=== PATIENT | female | born 1945 | race Asian ===

== ENCOUNTER 2021-12-14 22:25 | Emergency (ER) | payer MEDICARE, OTHER, SELFPAY ==
[2021-12-14 22:55] VITALS: BP 172/88; PULSE 62; RESP 16; TEMP 36.4; O2SAT 98; BMI 24.1
--- NOTE | 2021-12-14 23:20 | CRLHL7_ITS ---
For Patients: As a result of the Cures Act, medical imaging exams and procedure reports are released immediately into your electronic medical record. You may view this report before your referring provider. If you have questions, please contact your health care provider. Indication: Trauma, fall. Pain. Technique: Three views of the left knee. Comparison: None. Findings/Impression: No acute fracture or dislocation. Tricompartmental osteophytes are present. Fabella is noted. Trace knee joint effusion. Mild edema within the infrapatellar fat pad. Dictated by Suri Paris MD @ 12/15/2021 12:34:12 AM (Electronically Signed)
[2021-12-14] MEDS: ACETAMINOPHEN 500 MG TABLET 1000 MG PO (23:54)
--- NOTE | 2021-12-15 00:22 | ED_ITS ---
HPI - Extremity Injury (Lower) General Chief Complaint: Extremity Pain/Injury, Lower Stated Complaint: Fall, knee pain Time Seen by Provider: 12/14/21 23:09 History of Present Illness HPI Narrative: 76-year-old woman presenting to the emergency department with her daughter. She is visiting the area to be with her brother who is in hospice and near . She had left his bedside and tripped over a concrete/curb and fell forward landing on hands and knees. Did not strike her head. There was no loss of consciousness. Notes a history of osteopenia which has resolved with her Mediterranean diet. Still with osteoarthritis. Left knee is the knee with most discomfort. She thinks it is a little swollen. No neck or back pain. Is not complaining of wrist pain. No abrasion apparent Related Data Home Medications Medication Instructions Recorded Confirmed cyclosporine 0.05 % eye drops in a drp 12/14/21 dropperette (Restasis) escitalopram oxalate 5 mg tablet mg 12/14/21 fluticasone propionate 50 intranasal 12/14/21 mcg/actuation nasal spray,suspension hydrocortisone-acetic acid 1 %-2 % drp 12/14/21 ear drops raloxifene 60 mg tablet mg 12/14/21 Allergies Allergy/AdvReac Type Severity Reaction Status Date / Time Penicillins AdvReac Severe Verified 12/14/21 23:07 Exam Narrative: Exam Narrative: Pleasant. NAD. Very talkative. Appears to be moving all extremities without difficulty. Head is atraumatic. Breathing easily. Cardiovascular is regular rate and rhythm Flexes and extends at the hips without difficulty. Also flexes and extends her knees. I do not see evidence of trauma to her hands or wrists. No abrasions over her knees. There is maybe a subtle effusion fullness on the left knee versus the right. Const: Vital Signs, click to edit/add: Vital Signs - 24 hr 12/14/21 22:55 Temperature 97.6 F Pulse Rate [Right Pulse Oximeter] 62 Respiratory Rate 16 Blood Pressure [Le ft Upper Arm] 172/88 H Pulse Oximetry 98 Oxygen Delivery Me thod Room Air Documenting provider has reviewed patient's vital signs: yes Course Course Hospital Course: Given acetaminophen sent for imaging Vital Signs Vital signs: Initial Vital Signs Temperature 97.6 F 12/14/21 22:55 Temperature Source Temporal Artery Scan 12/14/21 22:55 Pulse Rate 62 12/14/21 22:55 Pulse Rhythm 12/14/21 22:55 Pulse Strength 3+ Normal 12/14/21 22:55 Respiratory Rate 16 12/14/21 22:55 Blood Pressure 172/88 H 12/14/21 22:55 Blood Pressure Mean 116 12/14/21 22:55 Blood Pressure Position Supine 12/14/21 22:55 Pulse Oximetry 98 12/14/21 22:55 Oxygen Delivery Method 12/14/21 22:55 Vital Signs Temperature 97.6 F 12/14/21 22:55 Pulse Rate 62 12/14/21 22:55 Respiratory Rate 16 12/14/21 22:55 Blood Pressure 172/88 H 12/14/21 22:55 Pulse Oximetry 98 12/14/21 22:55 Oxygen Delivery Method 12/14/21 22:55 Temperature 97.6 F 12/14/21 22:55 Pulse Rate 62 12/14/21 22:55 Respiratory Rate 16 12/14/21 22:55 Blood Pressure 172/88 H 12/14/21 22:55 Pulse Oximetry 98 12/14/21 22:55 Oxygen Delivery Method 12/14/21 22:55 MDM - Extremity Injury (Lower) MDM Narrative Medical decision making narrative: Does not seem to need interventions for pain though she is uncomfortable and would accept some acetaminophen. This was ordered. I discussed watchful waiting, icing but given her presence here they did like to proceed with imaging. Three-view left knee reviewed by me shows osteoarthritic changes. Narrowing actually of the lateral joint compartment relative to the medial. I do not see any acute bony abnormality. I shared images with [facility] over-read Findings/Impression: No acute fracture or dislocation. Tricompartmental osteophytes are present. Fabella is noted. Trace knee joint effusion. Mild edema within the infrapatellar fat pad. Discharge Plan Discharge Clinical Impression: Knee strain, Contusion of knee Patient Disposition: Home, Self-Care Condition: Stable Additional Instructions: Since you acutely injured your knee, yes, I do think that icing is more im portant than heat over the next 2-3 days. I would try to ice it 2 - 3 times daily over the next 2-3 days. Maybe with a little food ibuprofen would not be so intolerable. Alternative to that could be up to 500 mg naproxen 2 times daily. Or your usual acetaminophen. Follow-up in a week if your knee is not improving. I will call you if radiology notes something more in your imaging. I wish you all peace in the coming days. Prescriptions: No Action hydrocortisone-acetic acid 1-2 % drops Label Comments: INSTILL 2 DROPS INTO AFFECTED EAR(S) 4 TIMES A DAY raloxifene 60 mg tablet Label Comments: TAKE 1 TABLET BY MOUTH EVERY DAY fluticasone propionate 50 mcg/actuation spray,suspension INTRANASAL Label Comments: INSTILL 1 SPRAY INTO EACH NOSTRIL TWICE A DAY cyclosporine [Restasis] 0.05 % dropperette Label Comments: INSTILL 1 DROP INTO BOTH EYES TWICE A DAY escitalopram oxalate 5 mg tablet Label Comments: TAKE 1 TABLET BY MOUTH EVERY DAY AT BEDTIME *DO NOT STOP MEDICATION SUDDENLY Follow Up/Referrals: Provider,Not a Local [Primary Care Provider] - Stand Alone Forms: [facility] Info Instructions
--- OUTSIDE RECORDS SUMMARY | 2021-12-15 00:42 | XMS_ITS ---
:1945 Author Care Team Providers Name Role Phone Yanira Harper Primary Care Provider Unavailable Allergies Code Code System Name Reaction Severity Status Onset Penicillins ? ? Active ? Notes: 07/31/16JG Medications Name Status Start Date Stop Date ? ? B12 Active ? Not available One Tablet By Mouth Daily calcium Active ? Not available one tablet Daily cetirizine 10 mg tablet Completed ? 08/01/19 17 Take 1 tablet every day by oral route as directed. D3 DOTS Active ? Not available One Tablet By Mouth Daily Dexilant 60 mg capsule, delayed release Active ? Not available Take 1 capsule every day by oral route for 56 days. Diflucan 150 mg tablet Completed ? 7 Take 1 tablet by oral route as directed. Flonase Allergy Relief 50 mcg/actuation nasal spray,suspension A ctive ? Not available [place] 2 sprays every day by intranasal route as directed for 30 days. krill oil Active ? Not available One Tablet By Mouth Daily levocetirizine 5 mg tablet Active ? Not a vailable Take 1 tablet every day by oral route as directed. [id number] 3.5 mg-10,000 unit/mL-1 % ear drops ,susp Active ? Not available Instill 4 drops 3 times a day by otic route as directed for 7 d ays. Pataday 0.2 % eye drops Active ? Not avai lable INSTILL 1 DROP INTO AFFECTED EYE(S) BY OPHTHALMIC ROUTE ONCE DA SAMEER Pyridium 200 mg tablet Completed ? 7 Take 1 tablet 3 times a day by oral route as directed for 2 day s. ranitidine 150 mg capsule Active ? Not av ailable Take 1 capsule every day by oral route. Replens vaginal gel Active ? Not availabl e Insert 1 g every day by vaginal route as directed for 30 days. Restasis Completed ? 03/14/2016 Twice Daily Restasis 0.05 % eye drops in a dropperette Active ? Not available INSTILL 1 DROP INTO AFFECTED EYE(S) BY OPHTHALMIC ROUTE EVERY 1 2 HOURS Voltaren 1 % topical gel Active ? Not jeannette ilable APPLY 2 GRAM TO THE AFFECTED AREA(S) BY TOPICAL ROUTE 4 TIMES P ER DAY zinc Active ? Not available One Tablet By Mouth Daily Notes: verbal confirmation-07/31/16JG Problems Name Status Onset Date Source ? Knee Joint Painful on Movement Unknown 11/06/2015 ? Hyperlipidemia Active 01/03/2016 ? Osteoarthritis of Knee Active 01/03/2016 ? Gastritis Unknown 02/25/2016 ? Diverticulitis Unknown 03/14/2016 ? Vaginitis Unknown 03/14/2016 ? Vaginal Dryness Unknown 03/14/2016 ? Dysuria Unknown 03/14/2016 ? Allergic Conjunctivitis Unknown 04/01/2016 ? Depressive Disorder Active 07/18/2016 ? Osteopenia Active 07/18/2016 ? Procedures Date Name Performed by ? 03/23/2015 Colonoscopy Information not avai lable Notes: benign polyps 03/23/2013 Eye - Cataract Surgery Information not a vailable ? Breast - Lumpectomy Information not avai lable Notes: left. fibroadenoma ? Tonsillectomy Information not avai lable ? Hysterectomy - JAMES/BSO Information not a vailable Notes: non-cancerous 09/26/2015 MAMMO, Diagnostic, Digital, Bilateral [facility] [address] [place] [address] (Work Place) 09/26/2015 US, Breast [facility] [address] [place] [address] (Work Place) 11/05/2015 XR, Knee, 1 or 2 View [facility] [address] [place] [address] (Work Place) 07/18/2016 MAMMO, Screening, Digital, Bilateral [facility] [address] [place] [address] (Work Place) 07/18/2016 XR, Foot, 2 View [facility] [address] [place] [address] (Work Place) 07/21/2016 US, Breast [facility] [address] [place] [address] (Work Place) 07/21/2016 MAMMO, Diagnostic, Digital, Bilateral [facility] [address] [place] [address] (Work Place) 02/17/2017 US, Breast [facility] [address] [place] [address] (Work Place) Results Lab Results Date Name Specimen Result Interpretation Description Value Range Status Address ? 07/21/2016 CMP, Serum ? Glucose, 98 mg/dL 65-99 Jaye l [facility]: or Plasma Serum mg/dL [address], [place] ? ? ? Bun 9 mg/dL 8-27 Final [facility]: mg/dL [address], [place] ? ? ? Creatinine, 0.58 0.57-1.00 Final [facility]: Serum mg/dL mg/dL [address], [place] ? ? ? eGFR If 92 >59 Final [facility]: Nonafricn AM mL/min/1. mL/min/1. [address], [place] ? ? ? eGFR If 106 >59 Final [facility]: Africn AM mL/min/1. mL/min/1. [address], [place] ? ? ? BUN/creatini 16 - Final Lab татьяна: ne Ratio [address], [place] ? ? ? Sodium, 143 134-144 Final [facility] : Serum mmol/L mmol/L [address], [place] ? ? Above Potassium, 5.3 3.5-5.2 Final [facility]: High Serum mmol/L mmol/L [address], [place] ? ? ? Chloride, 102 96-106 Final [facility]: Serum mmol/L mmol/L [address], [place] ? ? ? Carbon 25 mmol/L 18-29 Final [facility]: Dioxide, mmol/L [address], [place] ? ? ? Calcium, 9.2 mg/dL 8.7-10.3 Final [facility]: Serum mg/dL [address], [place] ? ? ? Protein, 6.5 g/dL 6.0-8.5 Final [facility]: Total, Serum g/dL [address], [place] ? ? ? Albumin, 4.2 g/dL 3.5-4.8 Final [facility]: Serum g/dL [address], [place] ? ? ? Globulin, 2.3 g/dL 1.5-4.5 Final Lab татьяна: Total g/dL [address], [place] ? ? ? A/g Ratio 1.8 1.2-2.2 Final [facility]: [address], [place] ? ? ? Bilirubin, 0.4 mg/dL 0.0-1.2 Final [facility]: Total mg/dL [address], [place] ? ? ? Alkaline 74 IU/L 39-117 Final [facility]: Phosphatase, IU/L [address], [place] ? ? ? Ast (Sgot) 20 IU/L 0-40 IU/L Final [facility]: [address], [place] ? ? ? Alt (Sgpt) 15 IU/L 0-32 IU/L Final [facility]: [address], [place] 07/21/2016 CBC W/ Auto Below Wbc 3.3 3.4-10.8 Final [facility]: Diff Low x10e3/uL x10e3/uL [address], [place] ? ? ? Rbc 4.94 3.77-5.28 Final [facility] : x10e6/uL x10e6/uL [address], [place] ? ? ? Hemoglobin 14.4 g/dL 11.1-15.9 Final [facility]: g/dL [address], [place] ? ? ? Hematocrit 44.9 % 34.0-46.6 Final [facility]: % [address], [place] ? ? ? Mcv 91 fL 79-97 fL Final [facility]: [address], [place] ? ? ? Mch 29.1 pg 26.6-33.0 Final [facility]: pg [address], [place] ? ? ? Mchc 32.1 g/dL 31.5-35.7 Final [facility]: g/dL [address], [place] ? ? ? Rdw 14.0 % 12.3-15.4 Final [facility] : % [address], [place] ? ? ? Platelets 155 150-379 Final [facility]: x10e3/uL x10e3/uL [address], [place] ? ? ? Neutrophils 46 % ? Final [facility]: [address], [place] ? ? ? Lymphs 44 % ? Final [facility]: [address], [place] ? ? ? Monocytes 8 % ? Final [facility]: [address], [place] ? ? ? Eos 1 % ? Final [facility]: [address], [place] ? ? ? Basos 1 % ? Final [facility]: [address], [place] ? ? ? Immature sales assistant entertainment and media ? Cancelled [facility]: Cells [address], [place] ? ? ? Neutrophils 1.6 1.4-7.0 Final Lab татьяна: (Absolute) x10e3/uL x10e3/uL [address], [place] ? ? ? Lymphs 1.4 0.7-3.1 Final [facility]: (Absolute) x10e3/uL x10e3/uL [address], [place] ? ? ? Monocytes(ab 0.3 0.1-0.9 Final [facility]: solute) x10e3/uL x10e3/uL [address], [place] ? ? ? Eos 0.0 0.0-0.4 Final [facility]: (Absolute) x10e3/uL x10e3/uL [address], [place] ? ? ? Baso 0.0 0.0-0.2 Final [facility]: (Absolute) x10e3/uL x10e3/uL [address], [place] ? ? ? Immature 0 % ? Final [facility] : Granulocytes [address], [place] ? ? ? Immature 0.0 0.0-0.1 Final [facility]: Grans (Abs) x10e3/uL x10e3/uL [address], [place] ? ? ? Nrbc sales assistant entertainment and media ? Cancelled [facility] : [address], [place] ? ? ? Hematology sales assistant entertainment [employer] media ? Cancelled [facility]: Comments: [address], [place] 07/21/2016 Lipid Above Cholesterol, 208 mg/dL 100-199 Fi nal [facility]: Panel, High Total mg/dL [address], [place] ? ? ? Triglyceride 88 mg/dL 0-149 Final [facility]: s mg/dL [address], [place] ? ? ? HDL 78 mg/dL >39 mg/dL Final [facility]: Cholesterol [address], [place] ? ? ? VLDL 18 mg/dL 5-40 Final [facility]: Cholesterol mg/dL [address], [place] ? ? Above LDL 112 mg/dL 0-99 Final [facility] : High Cholesterol mg/dL [address], [place] ? ? ? Comment: sales assistant entertainment [employer] ? Cancelled [facility]: [address], [place] 07/21/2016 TSH, Serum ? TSH-icma 1.5 uu/mL ? Fin al [employer] or Plasma [employer] Coagulatio n : [address] [facility] 07/18/2016 Culture, URIN ? Urine final ? Final [facility]: Urine E Culture, report [address], [place] ? ? URIN ? Result 1 comment ? Final [facility]: E [address], [place] 03/05/2016 Culture, URIN ? Urine final ? Final [facility]: Urine E Culture, report [address], [place] ? ? URIN ? Result 1 no growth ? Final [facility]: E [address], [place] 12/25/2015 Cbc ? Wbc 3.8 3.4-10.8 Final [facility]: x10e3/uL x10e3/uL [address], [place] ? ? ? Rbc 4.83 3.77-5.28 Final [facility] : x10e6/uL x10e6/uL [address], [place] ? ? ? Hemoglobin 14.5 g/dL 11.1-15.9 Final [facility]: g/dL [address], [place] ? ? ? Hematocrit 42.8 % 34.0-46.6 Final [facility]: % [address], [place] ? ? ? Mcv 89 fL 79-97 fL Final [facility]: [address], [place] ? ? ? Mch 30.0 pg 26.6-33.0 Final [facility]: pg [address], [place] ? ? ? Mchc 33.9 g/dL 31.5-35.7 Final [facility]: g/dL [address], [place] ? ? ? Rdw 14.6 % 12.3-15.4 Final [facility] : % [address], [place] ? ? ? Platelets 159 150-379 Final [facility]: x10e3/uL x10e3/uL [address], [place] ? ? ? Neutrophils 46 % ? Final [facility]: [address], [place] ? ? ? Lymphs 46 % ? Final [facility]: [address], [place] ? ? ? Monocytes 6 % ? Final [facility]: [address], [place] ? ? ? Eos 1 % ? Final [facility]: [address], [place] ? ? ? Basos 1 % ? Final [facility]: [address], [place] ? ? ? Immature sales assistant entertainment and media ? Cancelled [facility]: Cells [address], [place] ? ? ? Neutrophils 1.7 1.4-7.0 Final Lab татьяна: (Absolute) x10e3/uL x10e3/uL [address], [place] ? ? ? Lymphs 1.8 0.7-3.1 Final [facility]: (Absolute) x10e3/uL x10e3/uL [address], [place] ? ? ? Monocytes(ab 0.2 0.1-0.9 Final [facility]: solute) x10e3/uL x10e3/uL [address], [place] ? ? ? Eos 0.1 0.0-0.4 Final [facility]: (Absolute) x10e3/uL [facility]3/uL [address] [facility] ? ? ? Baso 0.0 0.0-0.2 Final [facility]: (Absolute) x10e3/uL x10e3/uL [address], [place] ? ? ? Immature 0 % ? [facility] ? ? ? Immature 0.0 0.0-0.1 Final [facility]: Grans (Abs) x10e3/uL x10e3/uL [address] [facility] ? ? ? Nrbc sales assistant entertainment and media ? [facility] [address] [facility] [facility] ? ? ? Hematology sales assistant entertainment and media ? Cancelled [facility]: Comments: [address] [facility] 12/25/2015 CMP, Serum ? Glucose, 92 mg/dL 65-99 Jaye l [facility]: or Plasma Serum mg/dL [address] [facility] [facility] ? ? ? Bun 10 mg/dL 8-27 Final [facility]: mg/dL [address] [facility] [facility] ? ? ? Creatinine, 0.66 0.57-1.00 Final [facility]: Serum mg/dL mg/dL [address] [facility] [facility] ? ? ? eGFR If 89 >59 Final [facility]: Nonafricn AM mL/min/1. mL/min/1. [address] [facility] ? ? ? eGFR If 102 >59 Final [facility]: Africn AM mL/min/1. mL/min/1. 5 [address] [facility] ? ? ? BUN/creatini 15 - Final Lab татьяна: ne Ratio [address] [facility] ? ? ? Sodium, 141 134-144 Final [facility] : Serum mmol/L mmol/L [address] [facility] [facility] ? ? ? Potassium, 4.3 3.5-5.2 Final [facility]: Serum mmol/L mmol/L [address] [facility] [facility] ? ? ? Chloride, 101 97-108 Final [facility]: Serum mmol/L mmol/L [address], [place] ? ? ? Carbon 26 mmol/L 18-29 Final [facility]: Dioxide, mmol/L [address], [place] ? ? ? Calcium, 9.4 mg/dL 8.7-10.3 Final [facility]: Serum mg/dL [address], [place] ? ? ? Protein, 6.3 g/dL 6.0-8.5 Final [facility]: Total, Serum g/dL [address], [place] ? ? ? Albumin, 4.3 g/dL 3.5-4.8 Final [facility]: Serum g/dL [address], [place] ? ? ? Globulin, 2.0 g/dL 1.5-4.5 Final Lab татьяна: Total g/dL [address], [place] ? ? ? A/g Ratio 2.2 1.1-2.5 Final [facility]: [address], [place] ? ? ? Bilirubin, 0.5 mg/dL 0.0-1.2 Final [facility]: Total mg/dL [address], [place] ? ? ? Alkaline 69 IU/L 39-117 Final [facility]: Phosphatase, IU/L [address], [place] ? ? ? Ast (Sgot) 15 IU/L 0-40 IU/L Final [facility]: [address], [place] 12/25/2015 Urinalysis ? Specific 1.013 1.005-1.0 Fin al [facility]: Complete, [place] [address], Culture [place] ? ? ? Ph 7.5 5.0-7.5 Final [facility]: [address], [place] ? ? ? Urine-color yellow yellow Final [facility]: [address], [place] ? ? ? Appearance clear clear Final [facility]: [address], [place] ? ? ABNORM WBC Esterase trace negative Final [facility]: AL [address], [place] ? ? ? Protein negative negative/ Final Lab татьяна: trace [address], [place] ? ? ? Glucose negative negative Final [facility]: [address], [place] ? ? ? Ketones negative negative Final [facility]: [address], [place] ? ? ABNORM Occult Blood trace negative Final [facility]: [place] [address], [place] ? ? ? Bilirubin negative negative Final [facility]: [address], [place] ? ? ? Urobilinogen 0.2 mg/dL 0.2-1.0 Final [facility]: ,semi-qn mg/dL [address], [place] ? ? ? Nitrite, negative negative Final Lab татьяна: Urine [address], [place] ? ? ? Microscopic see ? Final [facility]: Examination below: [address], [place] ? ? ? Wbc 0-5 /hpf 0 - 5 Final [facility]: /hpf [address], [place] ? ? ? Rbc 0-2 /hpf 0 - 2 Final [facility]: /hpf [address], [place] ? ? ? Epithelial 0-10 /hpf 0 - 10 Final [facility]: Cells (Non /hpf [address], [place] ? ? ? Epithelial sales assistant entertainment [employer] ? Cancelled [facility]: Cells (Renal) [address], [place] ? ? ? Casts sales assistant entertainment and media ? Cancelled [facility] : [address], [place] ? ? ? Cast Type sales assistant entertainment and media ? Cancelled Lab татьяна: [address], [place] ? ? ? Crystals sales assistant entertainment and media ? Cancelled [facility]: [address], [place] ? ? ? Crystal Type sales assistant entertainment and media ? Cancelled [facility]: [address], [place] ? ? ? Mucus present not Final [facility]: Threads estab. [address], [place] ? ? ? Bacteria none seen none Final [facility]: seen/few [address], [place] ? ? ? Yeast sales assistant entertainment and media ? Cancelled [facility] : [address], [place] ? ? ? Trichomonas sales assistant entertainment and media ? Cancelled [facility]: [address], [place] ? ? ? Comment sales assistant entertainment and media ? Cancelled [facility]: [address], [place] ? ? ? Urinalysis comment ? Final [facility]: Reflex [address], [place] ? ? ? Urine final ? Final [facility]: Culture, report [address], [place] ? ? ? Result 1 no growth ? Final [facility]: [address], [place] 12/25/2015 Lipid Above Cholesterol, 227 mg/dL 100-199 Fi nal [facility]: Panel, High Total mg/dL [address], [place] ? ? ? Triglyceride 76 mg/dL 0-149 Final [facility]: s mg/dL [address], [place] ? ? ? HDL 82 mg/dL >39 mg/dL Final [facility]: Cholesterol [address], [place] ? ? ? VLDL 15 mg/dL 5-40 Final [facility]: Cholesterol mg/dL [address], [place] ? ? Above LDL 130 mg/dL 0-99 Final [facility] : High Cholesterol mg/dL [address], [place] ? ? ? Comment: sales assistant entertainment and media ? Cancelled [facility]: [address], [place] ? ? ? T. chol/HDL 2.8 ratio 0.0-4.4 Final [facility]: Ratio units ratio [address], [place] 12/25/2015 TSH, 2Nd ? Tsh 2.090 0.450-4.5 Final [facility]: Generation, uIU/mL 00 uIU/mL [address], Serum [place] [address], or Plasma [place] 12/25/2015 Vitamin D, ? Vitamin D, 46.9 30.0-100. F inal [facility]: 25-Hydroxy, 25-Hydroxy NG/mL 0 NG/mL [address], Serum [place] 12/25/2015 Vitamin Above Vitamin B12 3093 064-116 Final [facility]: B12, Serum High pg/mL pg/mL [address], [place] ? Urinalysis, ? Urocheck [id number] ? ? In-Office Dipstick 120, Lot # Orde r: Internal Use Only D O Not Attach Compendium DO Not Attach Compendium , Do Not Delete/gee g e ? ? ? Expiration 12/2017 ? ? In-O ffice Date: Order: Internal Use Only D O Not Attach Compendium DO Not Attach Compendium , Do Not Delete/gee g e ? ? ? Glucose Negative ? ? In-Off ice Order: Internal Use Only D O Not Attach Compendium DO Not Attach Compendium , Do Not Delete/gee g e ? ? ? Bilirubin negative ? ? In-O ffice Order: Internal Use Only D O Not Attach Compendium DO Not Attach Compendium , Do Not Delete/gee g e ? ? ? Ketone Negative ? ? In-Offi ce Order: Internal Use Only D O Not Attach Compendium DO Not Attach Compendium , Do Not Delete/gee g e ? ? ? Specific 1.020 ? ? In-Offi ce [place] Order: Internal Use Only D O Not Attach Compendium DO Not Attach Compendium , Do Not Delete/gee g e ? ? ? Blood Negative ? ? In-Offic e Order: Internal Use Only D O Not Attach Compendium DO Not Attach Compendium , Do Not Delete/gee g e ? ? ? Ph 7.0 ? ? In-Office Order: Internal Use Only D O Not Attach Compendium DO Not Attach Compendium , Do Not Delete/gee g e ? ? ? Protein Negative ? ? In-Off ice Order: Internal Use Only D O Not Attach Compendium DO Not Attach Compendium , Do Not Delete/gee g e ? ? ? Urobilinogen 0.2 ? ? In- Office Order: Internal Use Only D O Not Attach Compendium DO Not Attach Compendium , Do Not Delete/gee g e ? ? ? Nitrate negative ? ? In-Off ice Order: Internal Use Only D O Not Attach Compendium DO Not Attach Compendium , Do Not Delete/gee g e ? ? ? Leukocytes Negative ? ? In- Office Order: Internal Use Only D O Not Attach Compendium DO Not Attach Compendium , Do Not Delete/gee g e ? Urinalysis, ? Urocheck [id number] ? ? In-Office Dipstick 120, Lot # Orde r: Internal Use Only D O Not Attach Compendium DO Not Attach Compendium , Do Not Delete/gee g e ? ? ? Expiration 07/2017 ? ? In-O ffice Date: Order: Internal Use Only D O Not Attach Compendium DO Not Attach Compendium , Do Not Delete/gee g e ? ? ? Glucose Negative ? ? In-Off ice Order: Internal Use Only D O Not Attach Compendium DO Not Attach Compendium , Do Not Delete/gee g e ? ? ? Bilirubin neg ? ? In-Off ice Order: Internal Use Only D O Not Attach Compendium DO Not Attach Compendium , Do Not Delete/gee g e ? ? ? Ketone Negative ? ? In-Offi ce Order: Internal Use Only D O Not Attach Compendium DO Not Attach Compendium , Do Not Delete/gee g e Past Encounters None recorded. Social History Tobacco Smoking Status Never Smoker Vaccine List None recorded. Plan of Care Reminders Provider Appointments None recorded. ? ? Lab None recorded. ? ? Referral None recorded. ? ? Procedures None recorded. ? ? Surgeries None recorded. ? ? Imaging None recorded. ? ? Vitals 07/31/2016 10:00AM Medicare Advantage Appt Height Weight BMI Blood Pressure 5 ft 1 in 126.5 lbs 23.9 kg/m2 134/77 mm[Hg] 07/18/2016 09:20AM Medicare Advantage Appt Height Weight BMI Blood Pressure 5 ft 1 in 127.5 lbs 24.1 kg/m2 142/80 mm[Hg] 04/14/2016 11:00AM Clinic Nurse Service Height Weight BMI Blood Pressure 5 ft 1 in 126.5 lbs 23.9 kg/m2 121/80 mm[Hg] 04/01/2016 01:00PM Clinic Nurse Service Height Weight BMI Blood Pressure 5 ft 1 in 127 lbs 24 kg/m2 126/78 mm[Hg] 03/14/2016 10:40AM Same Day Sick FFS Height Weight BMI Blood Pressure 5 ft 1 in 126.5 lbs 23.9 kg/m2 137/75 mm[Hg] 03/05/2016 02:15PM Clinic Nurse Service Height Weight BMI Blood Pressure 5 ft 1 in 126 lbs 23.8 kg/m2 155/84 mm[Hg] 01/03/2016 03:20PM Medicare Advantage Appt Height Weight BMI Blood Pressure 5 ft 1 in 128 lbs 24.2 kg/m2 114/80 mm[Hg] 11/05/2015 03:40PM Sick MAPD Height Weight BMI Blood Pressure 5 ft 1 in 128 lbs 24.2 kg/m2 122/88 mm[Hg] 09/26/2015 04:00PM Medicare Advantage Appt Height Weight BMI Blood Pressure 5 ft 1 in 128 lbs 24.2 kg/m2 122/82 mm[Hg] 09/11/2015 10:00AM New Pt Med Advantage Height Weight BMI Blood Pressure 5 ft 1 in 125 lbs 23.6 kg/m2 110/90 mm[Hg]
--- OUTSIDE RECORDS SUMMARY | 2021-12-15 00:43 | XMS_ITS ---
[...] nasal spray,suspension A ctive ? Not available [place] 2 sprays every day by intranasal route as directed for 30 days. krill oil Active ? Not available One Tablet By Mouth Daily levocetirizine 5 mg tablet Active ? Not a vailable Take 1 tablet every day by oral route as directed. zqjlvhof-ahwhljeyq-swjrjriny 3.5 mg-10,000 unit/mL-1 % ear drops ,susp [...] Bilateral [facility] [address] [place] [address] (Work Place) 09/26/2015 US, Breast [facility] [address] [place] [address] (Work Place) 11/05/2015 XR, Knee, 1 or 2 View [facility] [address] [place] [address] (Work [address]) 07/18/2016 MAMMO, Screening, Digital, Bilateral [facility] [address] [place] [address] (Work Place) 07/18/2016 XR, Foot, 2 View [facility] [address] [place] [address] (Work Place) 07/21/2016 US, Breast [facility] [address] [place] [address] (Work Place) 07/21/2016 MAMMO, Diagnostic, Digital, Bilateral [facility] [address] [place] [address] (Work Place) 02/17/2017 US, Breast [facility] [address] [place] [address] (Work [address]) Results Lab Results Date Name Specimen Result Interpretation Description Value Range Status Address ? 07/21/2016 CMP, Serum ? Glucose, 98 mg/dL 65-99 Jaye l [facility]: or Plasma Serum mg/dL [address], [place] ? ? ? Bun 9 mg/dL 8-27 Final [facility]: mg/dL [address], [place] ? ? ? Creatinine, 0.58 0.57-1.00 Final [facility]: Serum mg/dL mg/dL [address], [place] ? ? ? eGFR If 92 >59 Final [facility]: Nonafricn AM mL/min/1. mL/min/1. [address], [place] ? ? ? eGFR If 106 >59 Final [facility]: Africn AM mL/min/1. mL/min/1. [address], [place] ? ? ? BUN/creatini 16 - Final Lab татьяна: ne Ratio [address], [place] ? ? ? Sodium, 143 134-144 Final [facility] : Serum mmol/L mmol/L [address], [place] ? ? Above Potassium, 5.3 3.5-5.2 Final [facility]: High Serum mmol/L mmol/L [address], [place] ? ? ? Chloride, 102 96-106 Final [facility]: Serum mmol/L mmol/L [address], [place] ? ? ? Carbon 25 mmol/L 18-29 Final [facility] p: Dioxide, mmol/L [address], [place] ? ? ? Calcium, 9.2 mg/dL 8.7-10.3 Final [facility]: Serum mg/dL [address], [place] ? ? ? Protein, 6.5 g/dL 6.0-8.5 Final [facility]: Total, Serum g/dL [address], [place] ? ? ? Albumin, 4.2 g/dL 3.5-4.8 Final [facility]: Serum g/dL [address], [place] ? ? ? Globulin, 2.3 g/dL 1.5-4.5 Final Lab татьяна: Total g/dL [address], [place] ? ? ? A/g Ratio 1.8 1.2-2.2 Final [facility]: [address], [place] ? ? ? Bilirubin, 0.4 mg/dL 0.0-1.2 Final [facility]: Total mg/dL [address], [place] ? ? ? Alkaline 74 IU/L 39-117 Final [facility]: Phosphatase, IU/L [address], [place] ? ? ? Ast (Sgot) 20 IU/L 0-40 IU/L Final [facility]: [address], [place] ? ? ? Alt (Sgpt) 15 IU/L 0-32 IU/L Final [facility]: [address], [place] 07/21/2016 CBC W/ Auto Below Wbc 3.3 3.4-10.8 Final [facility]: Diff Low x10e3/uL x10e3/uL [address], [place] ? ? ? Rbc 4.94 3.77-5.28 Final [facility] : x10e6/uL x10e6/uL [address], [place] ? ? ? Hemoglobin 14.4 g/dL 11.1-15.9 Final [facility]: g/dL [address], [place] ? ? ? Hematocrit 44.9 % 34.0-46.6 Final [facility]: % [address], [place] ? ? ? Mcv 91 fL 79-97 fL Final [facility]: [address], [place] ? ? ? Mch 29.1 pg 26.6-33.0 Final [facility]: pg [address], [place] ? ? ? Mchc 32.1 g/dL 31.5-35.7 Final [facility]: g/dL [address], [place] ? ? ? Rdw 14.0 % 12.3-15.4 Final [facility] : % [address], [place] ? ? ? Platelets 155 150-379 Final [facility]: x10e3/uL x10e3/uL [address], [place] ? ? ? Neutrophils 46 % ? Final [facility]: [address], [place] ? ? ? Lymphs 44 % ? Final [facility]: [address], [place] ? ? ? Monocytes 8 % ? Final [facility]: [address], [place] ? ? ? Eos 1 % ? Final [facility]: [address], [place] ? ? ? Basos 1 % ? Final [facility]: [address], [place] ? ? ? Immature brick paving checker ? Cancelled [facility]: Cells [address], [place] ? ? ? Neutrophils 1.6 1.4-7.0 Final Lab татьяна: (Absolute) x10e3/uL x10e3/uL [address], [place] ? ? ? Lymphs 1.4 0.7-3.1 Final [facility]: (Absolute) x10e3/uL x10e3/uL [address], [place] ? ? ? Monocytes(ab 0.3 0.1-0.9 Final [facility]: solute) x10e3/uL x10e3/uL [address], [place] ? ? ? Eos 0.0 0.0-0.4 Final [facility]: (Absolute) x10e3/uL x10e3/uL [address], [place] ? ? ? Baso 0.0 0.0-0.2 Final [facility]: (Absolute) x10e3/uL x10e3/uL [address], [place] ? ? ? Immature 0 % ? Final [facility] : Granulocytes [address], [place] ? ? ? Immature 0.0 0.0-0.1 Final [facility]: Grans (Abs) x10e3/uL x10e3/uL [address], [place] ? ? ? Nrbc brick paving checker ? Cancelled [facility] : [address], [place] ? ? ? Hematology brick paving checker ? Cancelled [facility]: Comments: [address], [place] 07/21/2016 Lipid Above Cholesterol, 208 mg/dL 100-199 Fi nal [facility]: Panel, High Total mg/dL [address], [place] ? ? ? Triglyceride 88 mg/dL 0-149 Final [facility]: s mg/dL [address], [place] ? ? ? HDL 78 mg/dL >39 mg/dL Final [facility]: Cholesterol [address], [place] ? ? ? VLDL 18 mg/dL 5-40 Final [facility]: Cholesterol mg/dL [address], [place] ? ? Above LDL 112 mg/dL 0-99 Final [facility] : High Cholesterol mg/dL [address], [place] ? ? ? Comment: brick paving checker ? Cancelled [facility]: [address], [place] 07/21/2016 TSH, Serum ? TSH-icma 1.5 uu/mL ? Fin al [employer] [facility] Plasma [facility] Coagulatio n : [address] [facility] 07/18/2016 Culture, URIN ? Urine final ? Final [facility]: Urine E Culture, report [address], [place] ? ? URIN ? Result 1 comment ? Final [facility]: E [address], [place] 03/05/2016 Culture, URIN ? Urine final ? Final [facility]: Urine E Culture, report [address], [place] ? ? URIN ? Result 1 no growth ? Final [facility]: E [address], [place] 12/25/2015 Cbc ? Wbc 3.8 3.4-10.8 Final [facility]: x10e3/uL x10e3/uL [address], [place] ? ? ? Rbc 4.83 3.77-5.28 Final [facility] : x10e6/uL x10e6/uL [address], [place] ? ? ? Hemoglobin 14.5 g/dL 11.1-15.9 Final [facility]: g/dL [address], [place] ? ? ? Hematocrit 42.8 % 34.0-46.6 Final [facility]: % [address], [place] ? ? ? Mcv 89 fL 79-97 fL Final [facility]: [address], [place] ? ? ? Mch 30.0 pg 26.6-33.0 Final [facility] p: pg [address], [place] ? ? ? Mchc 33.9 g/dL 31.5-35.7 Final [facility]: g/dL [address], [place] ? ? ? Rdw 14.6 % 12.3-15.4 Final [facility] : % [address], [place] ? ? ? Platelets 159 150-379 Final [facility]: x10e3/uL x10e3/uL [address], [place] ? ? ? Neutrophils 46 % ? Final [facility]: [address], [place] ? ? ? Lymphs 46 % ? Final [facility]: [address], [place] ? ? ? Monocytes 6 % ? Final [facility] p: [address], [place] ? ? ? Eos 1 % ? Final [facility]: [address], [place] ? ? ? Basos 1 % ? Final [facility]: [address], [place] ? ? ? Immature brick paving checker ? Cancelled [facility]: Cells [address], [place] ? ? ? Neutrophils 1.7 1.4-7.0 Final Lab татьяна: (Absolute) x10e3/uL x10e3/uL [address], [place] ? ? ? Lymphs 1.8 0.7-3.1 Final [facility]: (Absolute) x10e3/uL x10e3/uL [address], [place] ? ? ? Monocytes(ab 0.2 0.1-0.9 Final [facility]: solute) x10e3/uL x10e3/uL [address], [place] ? ? ? Eos 0.1 0.0-0.4 Final [facility]: (Absolute) x10e3/u[facility] [address] [facility] ? ? Baso 0.0 0.0-0.2 Final [facility]: (Absolute) x10e3/uL x10e3/uL [address], [place] ? ? ? Immature 0 % ? Final [facility] ? ? ? Immature 0.0 0.0-0.1 Final [facility]: Grans (Abs) x10e3/uL x10e3/uL [facility] ? ? ? Nrbc brick paving checker ? [facility] ? ? ? Hematology brick paving checker ? [facility]elled [facility]: [facility]: [address] [facility] 12/25/2015 CMP, Serum ? Glucose, 92 mg/dL 65-99 Jaye l [facility]: or Plasma Serum mg/dL [address] [facility] ? ? ? Bun 10 mg/dL 8-27 Final [facility]: mg/dL [address] [facility] ? ? ? Creatinine, 0.66 0.57-1.00 Final [facility]: Serum mg/dL mg/dL [address] [facility] ? ? ? eGFR If 89 >59 Final [facility]: Nonafricn AM mL/min/1. mL/min/1. [address] [facility] ? ? ? eGFR If 102 >59 Final [facility]: Africn AM mL/min/1. mL/min/1. [address] [facility] ? ? ? BUN/creatini 15 - Final Lab татьяна: ne Ratio [address] [facility] ? ? ? Sodium, 141 134-144 Final [facility] : Serum mmol/L mmol/L [address] [facility] ? ? ? Potassium, 4.3 3.5-5.2 Final [facility]: Serum mmol/L mmol/L [address] [facility] ? ? ? Chloride, 101 97-108 Final [facility]: Serum mmol/L mmol/L [address], [place] ? ? ? Carbon 26 mmol/L 18-29 Final [facility]: Dioxide, mmol/L [address], [place] ? ? ? Calcium, 9.4 mg/dL 8.7-10.3 Final [facility]: Serum mg/dL [address], [place] ? ? ? Protein, 6.3 g/dL 6.0-8.5 Final [facility]: Total, Serum g/dL [address], [place] ? ? ? Albumin, 4.3 g/dL 3.5-4.8 Final [facility]: Serum g/dL [address], [place] ? ? ? Globulin, 2.0 g/dL 1.5-4.5 Final Lab татьяна: Total g/dL [address], [place] ? ? ? A/g Ratio 2.2 1.1-2.5 Final [facility]: [address], [place] ? ? ? Bilirubin, 0.5 mg/dL 0.0-1.2 Final [facility]: Total mg/dL [address], [place] ? ? ? Alkaline 69 IU/L 39-117 Final [facility]: Phosphatase, IU/L [address], [place] ? ? ? Ast (Sgot) 15 IU/L 0-40 IU/L Final [facility]: [address], [place] 12/25/2015 Urinalysis ? Specific 1.013 1.005-1.0 Fin al [facility]: Complete, [place] [address], Culture [place] ? ? ? Ph 7.5 5.0-7.5 Final [facility]: [address], [place] ? ? ? Urine-color yellow yellow Final [facility]: [address], [place] ? ? ? Appearance clear clear Final [facility]: [address], [place] ? ? ABNORM WBC Esterase trace negative Final [facility]: [place] [address], [place] ? ? ? Protein negative negative/ Final Lab татьяна: trace [address], [place] ? ? ? Glucose negative negative Final [facility]: [address], [place] ? ? ? Ketones negative negative Final [facility]: [address], [place] ? ? ABNORM Occult Blood trace negative Final [facility]: [place] [address], [place] ? ? ? Bilirubin negative negative Final [facility]: [address], [place] ? ? ? Urobilinogen 0.2 mg/dL 0.2-1.0 Final [facility]: ,semi-qn mg/dL [address], [place] ? ? ? Nitrite, negative negative Final Lab татьяна: Urine [address], [place] ? ? ? Microscopic see ? Final [facility]: Examination below: [address], [place] ? ? ? Wbc 0-5 /hpf 0 - 5 Final [facility]: /hpf [address], [place] ? ? ? Rbc 0-2 /hpf 0 - 2 Final [facility]: /hpf [address], [place] ? ? ? Epithelial 0-10 /hpf 0 - 10 Final [facility]: Cells (Non /hpf [address], [place] ? ? ? Epithelial brick paving checker ? Cancelled [facility]: Cells (Renal) [address], [place] ? ? ? Casts brick paving checker ? Cancelled [facility] : [address], [place] ? ? ? Cast Type brick paving checker ? Cancelled Lab татьяна: [address], [place] ? ? ? Crystals brick paving checker ? Cancelled [facility]: [address], [place] ? ? ? Crystal Type brick paving checker ? Cancelled [facility]: [address], [place] ? ? ? Mucus present not Final [facility]: Threads estab. [address], [place] ? ? ? Bacteria none seen none Final [facility]: seen/few [address], [place] ? ? ? Yeast brick paving checker ? Cancelled [facility] : [address], [place] ? ? ? Trichomonas brick paving checker ? Cancelled [facility]: [address], [place] ? ? ? Comment brick paving checker ? Cancelled [facility]: [address], [place] ? ? ? Urinalysis comment ? Final [facility]: Reflex [address], [place] ? ? ? Urine final ? Final [facility]: Culture, report [address], [place] ? ? ? Result 1 no growth ? Final [facility]: [address], [place] 12/25/2015 Lipid Above Cholesterol, 227 mg/dL 100-199 Fi nal [facility]: Panel, High Total mg/dL [address], [place] ? ? ? Triglyceride 76 mg/dL 0-149 Final [facility]: s mg/dL [address], [place] ? ? ? HDL 82 mg/dL >39 mg/dL Final [facility]: Cholesterol [address], [place] ? ? ? VLDL 15 mg/dL 5-40 Final [facility]: Cholesterol mg/dL [address], [place] ? ? Above LDL 130 mg/dL 0-99 Final [facility] : High Cholesterol mg/dL [address], [place] ? ? ? Comment: brick paving checker ? Cancelled [facility]: [address], [place] ? ? ? T. chol/HDL 2.8 ratio 0.0-4.4 Final [facility]: Ratio units ratio [address], [place] 12/25/2015 TSH, 2Nd ? Tsh 2.090 0.450-4.5 Final [facility]: Generation, uIU/mL 00 uIU/mL [address], Serum [address], or Plasma [place] 12/25/2015 Vitamin D, ? Vitamin D, 46.9 30.0-100. F inal [facility]: 25-Hydroxy, 25-Hydroxy NG/mL 0 NG/mL [address], Serum [place] 12/25/2015 Vitamin Above Vitamin B12 [phone] Final [facility]: B12, Serum High pg/mL pg/mL [address], [place] ? Urinalysis, ? Urocheck [id number] ? ? In-Office Dipstick 120, Lot # [...] ? Specific 1.020 ? ? In-Offi ce [place] Order: Internal Use Only D O Not [...] Delete/gee g e ? Urinalysis, ? Urocheck [id number] ? ? In-Office Dipstick 120, Lot # [...]
== END 2021-12-15 00:43 | disposition home or self-care (01) ==
LOC: ED 12-15 00:39
PROVIDERS: Emergency Provider Family Medicine
DX: S80.02XA Contusion of left knee, initial encounter (principal)
CPT/HCPCS: 73562; 99283; A9270